=== PATIENT | female | born 1970 | race Caucasian/White ===

== ENCOUNTER 2020-03-30 11:47 | Emergency (ER) | payer SELFPAY ==
[2020-03-30 11:51] VITALS: BP 151/99; PULSE 102; RESP 17; TEMP 36.4; O2SAT 98; BMI 31.8
[2020-03-30 11:54] VITALS: BP 149/91; PULSE 90; RESP 18; O2SAT 97
--- NOTE | 2020-03-30 11:54 | XR_ITS ---
WS: [id number] LEFT HAND: 3 VIEW(S) TECHNIQUE: PA, oblique and lateral. HISTORY: injury COMPARISON: None available. No acute fracture or dislocation. No soft tissue or bone abnormality. XR/XR hand LT min 3V* [id number] IMPRESSION: Normal LEFT hand.
--- NOTE | 2020-03-30 11:55 | ED_ITS ---
HPI - Extremity Injury (Upper) General: Chief Complaint: Extremity Injury, Upper Stated Complaint: LEFT WRIST PAIN Time Seen by Provider: 03/30/20 11:49 Source: patient Mode of arrival: ambulatory Limitations: no limitations History of Present Illness: HPI narrative: was carrying heavy carton of milk and immediately felt pain in her L hand/wrist complaint: injury to: left, wrist and hand Onset (ago): hour(s) Other injuries: none Severity: moderate Relieving factors: immobilization Exacerbating factors: movement of extremity Associated symptoms: Reports no associated symptoms Review of Systems Musc: Reports: other (L hand/wrist pain) Neuro: Denies: numbness in extremities or sensory changes PFSH ED PFSH: Social History Smoking and tobacco status: current every day smoker Physical Exam Const: COMMON NORMALS: no acute distress, average body habitus, patient oriented x3, no limitations, healthy appearing, alert and well nourished Extremity: GENERAL: Yes normal exam except as noted OTHER: TTP along L thenar eminence and radial wrist; no swelling noted; no ecchymosis; NV intact Neuro: COMMON NORMALS: patient oriented x3 and no sensory deficits noted SENSORIUM/ORIENTATION: Yes alert Skin: COMMON NORMALS: no rashes or lesions noted GENERAL SKIN EXAM: no rashes or lesions noted Course Vital Signs: Vital signs: Vital Signs Temperature 97.6 F 03/30/20 11:51 Pulse Rate 85 03/30/20 13:11 Respiratory Rate 18 03/30/20 13:11 Blood Pressure 142/85 03/30/20 13:11 Pulse Oximetry 99 03/30/20 13:11 MDM - Extremity Injury (Upper) Imaging Data^: L hand XR: Radiologist's impression: [address] [address] XRay Report Signed Patient: Manju Romeo Unit #: [id number] : 1970 Age/Sex: 50 / F ADM Date: 03/30/20 Loc: ER Room/Bed: Attending Dr: Ordering Provider/Ordering MD: Lidia Morgan Date of Service: 03/30/20 Procedure(s): XR hand LT min 3V* 58632 Accession Number(s): [id number] Report Number: [id number] WS: [id number] LEFT HAND: 3 VIEW(S) TECHNIQUE: PA, oblique and lateral. HISTORY: injury COMPARISON: None available. No acute fracture or dislocation. No soft tissue or bone abnormality. XR/XR hand LT min 3V* [id number] IMPRESSION: Normal LEFT hand. Dictated By: Keke Galeana DO Signed By: Keke Galeana DO Signed Date/Time: 03/30/201217 DD/ 16 Discharge Plan Discharge Patient Disposition: Home, Self-Care Clinical Impression: Left wrist sprain Qualifiers: Encounter type: initial encounter Qualified Code(s): S63.502A - Unspecified sprain of left wrist, initial encounter Condition: Stable Discharge Orders: Discharge Order (Routine); Ordered 03/30/20 Ordered By: Lidia Morgan Referrals: Jay Berrios DO [Physician] - Patient Instructions: Wrist Injury (ED), Wrist Sprain (ED), Sprains - Wrist Activity Restrictions/Additional Instructions: Use velcro wrist splint as needed. Follow up with primary care in 1-2 weeks for continued pain. Discharge Date/Time: 03/30/20 13:13 Coding Level of Care Code ED Ratings Analyst for Razg Fwd Exam Expanded Problem Focused
[2020-03-30] MEDS: ketorolac 60 mg/2 mL INJ IM (13:02)
[2020-03-30 13:11] VITALS: BP 142/85; PULSE 85; RESP 18; O2SAT 99
== END 2020-03-30 13:13 | disposition home or self-care (01) ==
PROVIDERS: Emergency Provider Physician Assistant
DX: S63.502A Unspecified sprain of left wrist, initial encounter (principal); X50.0XXA Overexertion from strenuous movement or load, initial encounter; F17.210 Nicotine dependence, cigarettes, uncomplicated
CPT/HCPCS: 12345; 29125; 73130; 96372; 99282; 99283; J1885